=== PATIENT | male | born 1990 | race Caucasian/White ===

== ENCOUNTER → 2018-03-11 | Outpatient (CLI) | payer BC ==
--- NOTE | 2018-03-11 13:28 | US ---
EXAMINATION TYPE: US abdomen limited DATE OF EXAM: 03/11/2018 COMPARISON: NONE CLINICAL HISTORY: R19.06 EPIGASTRIC PAIN AND SWELLING. Difficult exam due to overlying bowel gas EXAM MEASUREMENTS: Liver Length: 14.5 cm Gallbladder Wall: 0.2 cm CBD: 0.4 cm Right Kidney: 11.0 x 3.7 x 4.6 cm Pancreas: Obscured by bowel gas Liver: wnl Gallbladder: wnl Evidence for sonographic Reddy's sign: No CBD: wnl Right Kidney: No hydronephrosis or masses seen No abnormality visualized at the area of the patient's palpable abnormality. IMPRESSION: 1. No suspicious ultrasound abnormality at the level of the palpable region under the sternum. 2. Portions of the upper abdomen included within the [id number] appear unremarkable.
== END ==
LOC: RADUSWWP 12:41
PROVIDERS: ATTEND Family Medicine
DX: R19.06 Epigastric swelling, mass or lump (principal); R10.13 Epigastric pain
CPT/HCPCS: 76705